=== PATIENT | female | born 1990 | race Caucasian/White ===

== ENCOUNTER 2017-05-23 18:13 | Emergency (ER) | payer MEDICAID, OTHER ==
[~2017-05-23] VITALS: Ht 162.6 cm; Wt 82.0 kg
[~2017-05-23 18:13] MED LIST: PREN1TAB49
[2017-05-23 18:29] VITALS: Ht 162.6 cm; Wt 82.0 kg
[2017-05-23] MEDS ORDERED: ONDANSETRON (ODT) 4 MG TAB ODT STA (18:53)
--- NOTE | 2017-05-23 19:06 | ERD ---
ER Documentation Chief Complaint Date/Time DATE: 05/23/17 TIME: 19:04 Chief Complaint 8 weeks , vomiting x 2 weeks w/ pelvic pain HPI 26-year-old female presents to emergency department for complaints of vomiting episodes for 2 weeks. Patient complains of pelvic pain, cramping pain, 4/10 scale, intermittent accompanying the vomiting. Patient denies any vaginal bleeding. Patient is 8 weeks . Patient was told by primary care doctor to be evaluated here in emergency department. Patient is given prescription for Zofran today, has not taking the medications yet. ROS All systems reviewed and are negative except as per history of present illness. Medications Home Meds Reported Medications Vits W-Ca,Fe,Fa(<1MG) () 1 Tab Tablet 09/17/11 Allergies Allergies: Coded Allergies: No Known Drug Allergy (Verified Allergy, Unknown, 09/17/11) PMhx/Soc Medical and Surgical Hx: pt denies Medical Hx, pt denies Surgical Hx History of Surgery: No Anesthesia Reaction: No Hx Neurological Disorder: No Hx Respiratory Disorders: No Hx Cardiac Disorders: No Hx Psychiatric Problems: No Hx Miscellaneous Medical Probl: No Hx Alcohol Use: No Hx Substance Use: No Hx Tobacco Use: No Smoking Status: Never smoker FmHx Family History: No coronary disease, No diabetes, No other Physical Exam Vitals Vital Signs Date Time Temp Pulse Resp B/P Pulse Ox O2 Delivery O2 Flow Rate FiO2 05/23/17 18:29 98.8 91 20 115/77 98 Physical Exam GENERAL: The patient is well developed and appropriate for usual state of health, in no apparent distress. CHEST: Clear to auscultation bilaterally. There are no rales, wheezes or rhonchi. HEART: Regular rate and rhythm. No murmurs, clicks, rubs or gallops. No S3 or S4. ABDOMEN: Soft, nontender and nondistended. Good bowel sounds. No rebound or guarding. No gross peritonitis. No gross organomegaly or masses. No William sign or McBurney point tenderness. BACK: No midline or flank tenderness. EXTREMITIES: Equal pulses bilaterally. There is no peripheral clubbing, cyanosis or edema. No focal swelling or erythema. Full range of motion. Grossly neurovascularly intact. NEURO: Alert and oriented. Cranial nerves 2-12 intact. Motor strength in all 4 extremities with 5/5 strength. Sensation grossly intact. Normal speech and gait. SKIN: There is no apparent rash or petechia. The skin is warm and dry. HEMATOLOGIC AND LYMPHATIC: There is no evidence of excessive bruising or lymphedema. No gross cervical, axillary, or inguinal lymphadenopathy. Result Diagram: 05/23/17192405/23/171924 Results 24 hrs Laboratory Tests Test 05/23/17 19:25 05/23/17 19:50 White Blood Count 10.510^3/ul Red Blood Count 4.6610^6/ul Hemoglobin 14.3g/dl Hematocrit 40.6% Mean Corpuscular Volume 87.1fl Mean Corpuscular Hemoglobin 30.7pg Mean Corpuscular Hemoglobin Concent 35.2g/dl Red Cell Distribution Width 12.0% Platelet Count 87207^3/UL Mean Platelet Volume 10.0fl Neutrophils % 65.7% Lymphocytes % 26.0% Monocytes % 6.7% Eosinophils % 0.7% Basophils % 0.5% Nucleated Red Blood Cells % 0.0/100WBC Neutrophils # (Manual) 6.910^3/ul Lymphocytes # 2.710^3/ul Monocytes # 0.710^3/ul Eosinophils # 0.110^3/ul Basophils # 0.110^3/ul Nucleated Red Blood Cells # 0.010^3/ul Sodium Level 138mmol/L Potassium Level 3.3mmol/L Chloride Level 101mmol/L Carbon Dioxide Level 22mmol/L Anion Gap 18 Blood Urea Nitrogen 7mg/dl Creatinine 0.55mg/dl Glucose Level 88mg/dl Calcium Level 9.7mg/dl Total Bilirubin 0.5mg/dl Direct Bilirubin 0.00mg/dl Indirect Bilirubin 0.5mg/dl Aspartate Amino Transf (AST/SGOT) 24IU/L Alanine Aminotransferase (ALT/SGPT) 49IU/L Alkaline Phosphatase 87IU/L Total Protein 9.2g/dl Albumin 5.1g/dl Globulin 4.10g/dl Albumin/Globulin Ratio 1.24 Beta HCG, Quantitative 26962.0mIU/ml Urine Color YELLOW Urine Clarity SLIGHTLY CLOUDY Urine pH 6.0 Urine Specific [place] 1.018 Urine Ketones TRACEmg/dL Urine Nitrite NEGATIVEmg/dL Urine Bilirubin NEGATIVEmg/dL Urine Urobilinogen 2+mg/dL Urine Leukocyte Esterase 1+Jesse/ul Urine Microscopic RBC 1/HPF Urine Microscopic WBC 2/HPF Urine Squamous Epithelial Cells FEW/HPF Urine Mucus FEW/HPF Urine Hemoglobin NEGATIVEmg/dL Urine Glucose NEGATIVEmg/dL Urine Total Protein NEGATIVEmg/dl Current Medications Medications (Trade) Dose Ordered Sig/Eliseo Route PRN Reason Start Time Stop Time Status Last Admin Dose Admin Ondansetron HCl (Zofran Odt) 4 mg ONCE STAT ODT 05/23/17 18:53 05/23/17 18:54 DC 05/23/17 19:16 Patient was given Zofran here in the emergency department. After treatment, patient was able to tolerate po fluids here in the emergency department without any vomiting. There is no signs and symptoms of dehydration. PROCEDURE: US OB. CLINICAL INDICATION: Pelvic pain TECHNIQUE: Transabdominal and transvaginal views of the pelvis are available for review. COMPARISON: No prior studies are available for comparison. FINDINGS: Uterus: No evidence of masses and normal in size estimated at 9.7 x 7.8 cm. Endometrial cavity: Intrauterine gestational sac, yolk sac and pole are present with the following information: [place]-rump length: 1.24 cm heart rate: 166 bpm Gestational sac: 3.06 cm Ultrasound estimated gestational age: 7 weeks 6 days No evidence of subchorionic hemorrhage Right ovary/adnexa: The ovary is not visualized. No adnexal mass lesion is seen. Left ovary/adnexa: The ovary is not visualized. No adnexal mass lesion is seen. Cul-de-sac: There is no free fluid. RPTAT:HJJR IMPRESSION: 1. Single live intrauterine with an estimated gestational age of 7- week 6 days, the estimated date of delivery 01/03/2018. 2. No evidence of subchorionic hemorrhage. Physician Lucas Date Time Electronically viewed and signed by Physician Lucas on 05/23/2017 20:07 JR/ CC: ARLETH LEARY TOOL PLANNER Procedures/MDM Medical Decision Making: She is symptoms of vomiting most likely consistent with hyperemesis gravidarum. Patient is able to tolerate oral fluids here in emergency department. Pelvic pain is controlled at this time. Patient is a viable without any subchorionic bleed. At this time, patient does not complain of abdominal pain. Patient does not have any vaginal bleeding. No leukocytosis, no bandemia. There is low suspicion for abdominal emergencies at this time. Patients abdominal exam is normal at this time. Patients radiology exam does not show any abdominal emergencies at this time. There is low suspicion for appendicitis, cholecystitis, abdominal aortic aneurysms or peritonitis at this time. There is low suspicion for sepsis. Patient appears well and is hemodynamically stable. Patient has urinary tract infection and will be treated. No symptoms of pyelonephritis. Disposition: Home. Condition: Stable Prescription continue Zofran, Keflex Instructions: Patient is advised to take medications as prescribed. Patient is advised to rest, increase fluid intake and do brat diet for next 1-2 days and progress as tolerated. Patient is advised that if symptoms are worse, severe abdominal pain, uncontrolled vomiting, high fever, severe flank pain, worst signs and symptoms, to return to the emergency department immediately. Otherwise, patient can follow up with primary care doctor in 5-7 days. Departure Diagnosis: Primary Impression: Hyperemesis gravidarum Additional Impressions: Pelvic pain Intrauterine UTI (urinary tract infection) Urinary tract infection type: acute cystitis Hematuria presence: without hematuria Qualified Code: N30.00 - Acute cystitis without hematuria Condition: Stable Patient Instructions: Hyperemesis Gravidarum, Pelvic Pain, Unknown Cause, Understanding Urinary Tract Infections (UTIs) Additional Instructions: Patient is advised to take medications as prescribed. Patient is advised to rest, increase fluid intake and do brat diet for next 1-2 days and progress as tolerated. Patient is advised that if symptoms are worse, severe abdominal pain , uncontrolled vomiting, high fever, severe flank pain, worst signs and symptoms , to return to the emergency department immediately. Otherwise, patient can follow up with primary care doctor in 5-7 days. ARLETH LEARY NP May 23, 2017 19:06
[2017-05-23 20:07] LABS: BASOPHIL # 0.1 10^3/ul (0.0-0.1); BASOPHILS % 0.5 % (0.0-2.0); EOSINOPHILS # 0.1 10^3/ul (0.0-0.5); EOSINOPHILS % 0.7 % (0.0-7.0); HEMATOCRIT 40.6 % (37.0-47.0); HEMOGLOBIN 14.3 g/dl (12.0-16.0); LYMPHOCYTES # 2.7 10^3/ul (0.8-2.9); MEAN CORPUSCULAR HEMOGLOBIN 30.7 pg (29.0-33.0); MEAN CORPUSCULAR HGB CONC 35.2 g/dl (32.0-37.0); MEAN CORPUSCULAR VOLUME 87.1 fl (82.0-101.0); MONOCYTE # 0.7 10^3/ul (0.3-0.9); MONOCYTES % 6.7 % (0.0-11.0); NEUTROPHILS % 65.7 % (39.0-77.0); PLATELET COUNT 330 10^3/UL (140-415); RED BLOOD COUNT 4.66 10^6/ul (4.20-5.40); WHITE BLOOD COUNT 10.5 10^3/ul (4.8-10.8)
--- NOTE | 2017-05-23 20:07 | RADRPT ---
PROCEDURE: US OB. CLINICAL INDICATION: Pelvic pain TECHNIQUE: Transabdominal and transvaginal views of the pelvis are available for review. COMPARISON: No prior studies are available for comparison. FINDINGS: Uterus: No evidence of masses and normal in size estimated at 9.7 x 7.8 cm. Endometrial cavity: Intrauterine gestational sac, yolk sac and pole are present with the foll owing information: [place]-rump length:1.24 cm heart rate:166 bpm Gestational sac:3.06 cm Ultrasound estimated gestational age:7 weeks 6 days No evidence of subchorionic hemorrhage Right ovary/adnexa: The ovary is not visualized. No adnexal mass lesion is seen. Left ovary/adnexa: The ovary is not visualized. No adnexal mass lesion is seen. Cul-de-sac: There is no free fluid. RPTAT:HJJR IMPRESSION: 1. Single live intrauterine with an estimated gestational age of 7-week 6 days, the estim ated date of delivery 01/03/2018. 2. No evidence of subchorionic hemorrhage. Physician Lucas Date Time Electronically viewed and signed by Physician Lucas on 05/23/2017 20:07 /
[2017-05-23 20:19] LABS: ADD UMIC YES; UR ASCORBIC ACID NEGATIVE (NEGATIVE); UR BILIRUBIN (Dip) NEGATIVE (NEGATIVE); UR BLOOD (Dip) NEGATIVE (NEGATIVE); UR CLARITY SLIGHTLY CLOUDY (CLEAR); UR COLOR YELLOW (YELLOW); UR GLUCOSE (Dip) NEGATIVE (NEGATIVE); UR KETONES (Dip) TRACE mg/dL (NEGATIVE); UR LEUKOCYTE ESTERASE (Dip) 1+ Leu/ul (NEGATIVE); UR MUCUS FEW /HPF (NONE SEEN); UR NITRITE (Dip) NEGATIVE (NEGATIVE); UR RBC 1 /HPF (0-5); UR SPECIFIC GRAVITY (Dip) 1.018 (1.003-1.030); UR SQUAMOUS EPITHELIAL CELL FEW /HPF (FEW); UR TOTAL PROTEIN (Dip) NEGATIVE (NEGATIVE); UR UROBILINOGEN (Dip) 2+ mg/dL (NEGATIVE)
[2017-05-23 20:27] LABS: ALBUMIN 5.1 g/dl (3.3-4.9); ALBUMIN/GLOBULIN RATIO 1.24; BILIRUBIN,INDIRECT 0.5 mg/dl (0-1.1); BILIRUBIN,TOTAL 0.5 mg/dl (0.2-1.3); CALCIUM 9.7 mg/dl (8.4-10.2); CREATININE 0.55 mg/dl (0.44-1.00); POTASSIUM 3.3 mmol/L (3.5-5.1); TOTAL PROTEIN 9.2 g/dl (6.1-8.1)
[2017-05-23] MEDS ORDERED: CEPH-443 PO (21:45)
[2017-05-23 21:51] VITALS: BP 122/70; PULSE 78; RESP 20; TEMP 98.5
== END 2017-05-23 21:51 | disposition home or self-care (01) ==
LOC: FTE 18:13
DX: O21.0 Mild hyperemesis gravidarum (principal); R10.2 Pelvic and perineal pain; O26.891 Other specified pregnancy related conditions, first trimester; O23.11 Infections of bladder in pregnancy, first trimester; Z3A.01 Less than 8 weeks gestation of pregnancy
CPT/HCPCS: 76801; 80053; 81001; 84702; 85025; 86900; 86901; Z7502; Z7610

== ENCOUNTER 2017-09-23 17:41 | Outpatient (CLI) | payer OTHER ==
[~2017-09-23] VITALS: Ht 165.1 cm; Wt 85.6 kg
[~2017-09-23 17:41] MED LIST changes: +CEPH-443 PO
[2017-09-23 18:00] VITALS: Ht 165.1 cm; Wt 85.6 kg
[2017-09-23 18:01] VITALS: BP 118/76; PULSE 94; RESP 18
[2017-09-23 18:41] LABS: BASOPHILS % 0.3 % (0.0-2.0); EOSINOPHILS # 0.1 10^3/ul (0.0-0.5); EOSINOPHILS % 0.6 % (0.0-7.0); HEMATOCRIT 36.6 % (37.0-47.0); HEMOGLOBIN 12.9 g/dl (12.0-16.0); LYMPHOCYTES # 1.9 10^3/ul (0.8-2.9); LYMPHOCYTES % 19.6 % (15.0-51.0); MEAN CORPUSCULAR HEMOGLOBIN 31.7 pg (29.0-33.0); MEAN CORPUSCULAR HGB CONC 35.2 g/dl (32.0-37.0); MEAN CORPUSCULAR VOLUME 89.9 fl (82.0-101.0); MEAN PLATELET VOLUME 9.9 fl (7.4-10.4); MONOCYTE # 0.6 10^3/ul (0.3-0.9); MONOCYTES % 6.3 % (0.0-11.0); NEUTROPHIL # 6.9 10^3/ul (1.6-7.5); NEUTROPHILS % 72.7 % (39.0-77.0); PLATELET COUNT 240 10^3/UL (140-415); RED BLOOD COUNT 4.07 10^6/ul (4.20-5.40); RED CELL DISTRIBUTION WIDTH 12.7 % (11.5-14.5); WHITE BLOOD COUNT 9.5 10^3/ul (4.8-10.8)
--- NOTE | 2017-09-23 18:45 | RADRPT ---
PROCEDURE: OB ultrasound CLINICAL INDICATION: labor TECHNIQUE: Multiple transverse and longitudinal OB images of the pelvis were obtained. The images were reviewed on a high-resolution PACS workstation. COMPARISON: None FINDINGS: A single live intrauterine is seen. The presentation is breech. The placenta is grade 1 a nd anterior in location. The cervix is closed. No evidence of funneling is seen. The cervix length i s 4 cm. The heart rate is beats per minute. IMPRESSION: Cervix length = 4 cm. RPTAT: HPNM Physician James Date Time Electronically viewed and signed by Physician James on 09/23/2017 18:45 /
[2017-09-23 18:49] LABS: ADD UMIC YES; UR ASCORBIC ACID NEGATIVE (NEGATIVE); UR BACTERIA FEW /HPF (NONE SEEN); UR BILIRUBIN (Dip) NEGATIVE (NEGATIVE); UR BLOOD (Dip) NEGATIVE (NEGATIVE); UR CLARITY CLEAR (CLEAR); UR COLOR STRAW (YELLOW); UR GLUCOSE (Dip) NEGATIVE (NEGATIVE); UR KETONES (Dip) NEGATIVE (NEGATIVE); UR LEUKOCYTE ESTERASE (Dip) 1+ Leu/ul (NEGATIVE); UR NITRITE (Dip) NEGATIVE (NEGATIVE); UR RBC 2 /HPF (0-5); UR SPECIFIC GRAVITY (Dip) 1.004 (1.003-1.030); UR SQUAMOUS EPITHELIAL CELL FEW /HPF (FEW); UR TOTAL PROTEIN (Dip) NEGATIVE (NEGATIVE); UR UROBILINOGEN (Dip) NEGATIVE (NEGATIVE)
--- NOTE | 2017-09-23 18:59 | PN ---
Triage Information Date/Time September 23, 2017 Reason for visit: Refer to OB triage at 26 weeks complaining of lower back pain and lower abdominal pain with walking and sitting down or laying down Weeks of Gestation 26 weeks plus /Para 3 para 2 Diabetes: none Hypertention: none Additional information Patient with most probably round ligament syndrome Objective Vital Signs Date Time Temp Pulse Resp B/P Pulse Ox O2 Delivery O2 Flow Rate FiO2 09/23/17 18:01 97.8 94 18 118/76 98 Room Air Heart Rate: 150's Heart Rate Comments Reactive Contractions: None Exam Deferred Results/Medications Result Diagram: 09/23/17 1823 Results 24 hrs Laboratory Tests Test 09/23/17 18:20 09/23/17 18:23 Urine Color STRAW Urine Clarity CLEAR Urine pH 6.0 Urine Specific [place] 1.004 Urine Ketones NEGATIVE Urine Nitrite NEGATIVE Urine Bilirubin NEGATIVE Urine Urobilinogen NEGATIVE Urine Leukocyte Esterase 1+ H Urine Microscopic RBC 2 Urine Microscopic WBC 2 Urine Squamous Epithelial Cells FEW Urine Bacteria FEW A Urine Hemoglobin NEGATIVE Urine Glucose NEGATIVE Urine Total Protein NEGATIVE White Blood Count 9.5 Red Blood Count 4.07 L Hemoglobin 12.9 Hematocrit 36.6 L Mean Corpuscular Volume 89.9 Mean Corpuscular Hemoglobin 31.7 Mean Corpuscular Hemoglobin Concent 35.2 Red Cell Distribution Width 12.7 Platelet Count 240 # Mean Platelet Volume 9.9 Neutrophils % 72.7 Lymphocytes % 19.6 Monocytes % 6.3 Eosinophils % 0.6 Basophils % 0.3 Nucleated Red Blood Cells % 0.0 Neutrophils # 6.9 Lymphocytes # 1.9 Monocytes # 0.6 Eosinophils # 0.1 Basophils # 0.0 Nucleated Red Blood Cells # 0.0 Imaging Results Cervix length = 4 cm. Disposition: Discharge Assessment/Plan Patient with round ligament syndrome We will provide abdominal binder Information given to patient in regards to round ligament syndrome Follow as outpatient ZARIA JIANG MD Sep 23, 2017 18:59
--- NOTE | 2017-09-23 19:23 | TRIAGE ---
OB Triage Datetime Report Generated by CPN: 09/23/2017 19:22 Datetime: 09/23/2017 19:04 Stage of : OB Triage Datetime: 09/23/2017 18:48 Labor Evaluation Frequency: 0 Monitor Mode: External Resting Tone [place]: Relaxed Heart Rate FHR Baseline Rate: 145 Monitor Mode: External US Variability: Moderate 6-25 bpm Accelerations: 10X10 Decelerations: None Category: Category I Pain Assessment Pain Scale: 0 Pain Presence: None/Denies Pain Type: N/A Pain Goal: 3 Pain Relief Measures: Comfort Measures Datetime: 09/23/2017 18:07 Stage of : OB Triage Datetime: 09/23/2017 17:54 Stage of : OB Triage Chief Complaint: presented to triage complaining of lower abd and back pain x 4wks, clinic is awar e of pain and was told to be on bedrest and was told that when pain persist to go to hospital, pt ca me in due to pain not getting any better, denies bleeding and leaking of water Time Provider Notified: 09/23/2017 18:07 Provider Notified: MARYANNE Initial Plan: CL, U/A CBC, vE, Maternal Assessment Level of Consciousness: Fully Conscious DTR's/Clonus: DTRs 2+; No Clonus Headache: Denies Blurred Vision: No Respiratory Effort: Unlabored; Regular Rhythm; Equal Expansion Breath Sounds, Left: Clear and Equal Breath Sounds, Right: Clear and Equal Nausea/Vomiting: Denies RUQ Epigastric Pain: Denies Lower Extremities Edema: None Degree: None Upper Extremities Edema: None Degree: None Facial Edema: None Temperature Route: Oral Fall Risk Assessment History of Falling: (0) No Secondary Diagnosis: (0) No Ambulatory Aid: (0) Bedrest/Nurse Assist IV Therapy: (0) No Gait: (0) Normal/Bedrest/Immobile Mental Status: (0) Oriented to Own Ability Fall Score: 0 Fall Risk Score Definition: No Risk: No action required Monitor Mode: External Heart Rate FHR Baseline Rate: 150 (Annotations: initial) Monitor Mode: External US Pain Assessment Pain Scale: 4 Pain Presence: Intermittent Pain Type: Cramping Pain Location: Back (Annotations: lower abd) Pain Relief Measures: Comfort Measures Datetime: 09/23/2017 17:53 EGA: 26.5 Datetime: 09/23/2017 17:52 Time of Arrival: 09/23/2017 17:52 Arrived By: Ambulatory Arrived From: Home Chief Complaint: has backpain and lower abd cramping x4 wkspresented to triage complaining of lowe r abd and back pain x 4wks, clinic is aware of pain and was told to be on bedrest and was told that when pain persist to go to hospital, pt came in due to pain not getting any better, denies bleeding and leaking of water Movement: Present Contractions: Irregular Contractions: 1-2 hrs Rupture of Membranes: Denies Vaginal Discharge: Denies Recent Sexual Intercouse: Denies Abdominal Trauma: Not Applicable Patient Complaints: Cramping; Back Pain Time Provider Notified: 09/23/2017 18:05 Provider Notified: MARYANNE Initial Plan: efm, CL, U/A, CBC, VE
== END 2017-09-23 19:10 | disposition home or self-care (01) ==
LOC: OBT 17:41 → L-D 17:42 → OBT 19:10
PROVIDERS: ATTEND Obstetrics & Gynecology
DX: O62.9 Abnormality of forces of labor, unspecified (principal); Z3A.26 26 weeks gestation of pregnancy
CPT/HCPCS: 76817; 81001; 85025; Z7500; G0463

== ENCOUNTER 2017-12-03 22:21 | Outpatient (CLI) | END 2017-12-04 00:45 | disposition home or self-care (01) ==

== ENCOUNTER 2017-12-15 22:29 | Outpatient (CLI) | END 2017-12-16 03:59 | disposition home or self-care (01) ==

== ENCOUNTER 2017-12-20 23:10 | Inpatient (IN) | END 2017-12-23 15:49 | disposition home or self-care (01) | DRG 775 ==